=== PATIENT | female | born 1980 | race Caucasian/White ===

== ENCOUNTER 2021-09-22 14:25 | Emergency (ER) | payer SELFPAY ==
--- NOTE | 2021-09-22 15:49 | XR_ITS ---
PROCEDURE INFORMATION: Exam: XR Right Knee Exam date and time: 09/22/2021 3:49 PM Age: 41 years old Clinical indication: Injury or trauma; Sprain or strain; Patella or knee; Right; Injury date: 09/22/21; Injury details: Injury going down stairs; Prior surgery; Surgery date: 6+ months; Surgery type: Ligament repair; Patient HX: PT felt a pull C/O pain lt lower knee cap TECHNIQUE: Imaging protocol: XR Right knee. Views: 3 views. COMPARISON: No relevant prior studies available. FINDINGS: Bones/joints: Normal surgical appearance post anterior cruciate ligament reconstruction. No displacement of hardware.No acute fracture or dislocation. There is mild narrowing of the medial knee joint space suggesting underlying chondromalacia. No significant bony arthritic deformities. Very small knee joint effusion. There are no lytic skeletal lesions seen. Soft tissues: Periarticular swelling. Overlying clothing artifacts. No soft tissue emphysema.No radiopaque foreign bodies within the soft tissues. IMPRESSION: 1. No acute fracture or dislocation. 2. Surgical findings post anterior cruciate ligament reconstruction. 3. Very small knee joint effusion. 4. Mild medial knee joint space narrowing suggesting underlying chondromalacia.
[2021-09-22 15:56] VITALS: BP 120/78; PULSE 62; RESP 18; TEMP 36.6; O2SAT 98; BMI 28.7
--- NOTE | 2021-09-22 16:05 | PC.NURSE ---
notified rad of xray order
--- NOTE | 2021-09-22 16:15 | [facility].EDLOEX ---
ED Disposition Clinical Impression: Right knee sprain Qualifiers: Encounter type: initial encounter Involved ligament of knee: medial collateral ligament Qualified Code(s): S83.411A - Sprain of medial collateral ligament of right knee, initial encounter Disposition: Home, Self-Care Condition on Discharge: Good Instructions: DI for Knee Sprain Prescriptions: Hydrocod/Acet 5/325 mg [[place] 5/325mg tablet] 1 tab PO Q6HP PRN #10 tab PRN Reason: Moderate Pain Transmission Status: Sent to [facility] Referrals: Provider,MD Lulu [Primary Care Provider] - Roger Mcclain MD [Staff Physician] - Derick Fernández [Referring] - - Critical Care Critical Care Time: No Attestation: On 09/22/21, the high probability of a clinically significant, sudden or life threatening deterioration of the following system(s) required my full and direct attention, intervention and personal management. The time I documented below is in addition to time spent performing reported procedures but includes the following listed in this critical care notation. Medical Decision Making - Medical Records Medical records reviewed: Yes: I reviewed the patient's medical records. - Mark Inquiry Pt receiving controlled substance: No Vital Signs: 09/22/21 15:56 Temperature 97.9 F Temperature Source Oral Pulse Rate [Left Radial] 62 Respiratory Rate 18 Blood Pressure [Left Arm] 120/78 Blood Pressure Mean [Left Arm] 92 Blood Pressure Source [Left Arm] Automatic Cuff Blood Pressure Position [Left Arm] Sitting 02 Sat by Pulse Oximetry 98 Oxygen Delivery Method Room Air Orders (Tests/Meds): ED MEDICATIONS Discontinued Medications Generic Name Dose Route Start Last Admin Trade Name Freq PRN Reason Stop Dose Admin Hydrocodone Bitart/Acetaminophen 1 tab 09/22/21 15:49 09/22/21 16:08 Hydrocodone/Apap 5/325 Mg Tablet PO 09/22/21 15:50 1 tab ONCE ONE Administration ORDERS Category Date Time Status XR knee RT 3V Stat Exams 09/22/21 15:49 Taken - Radiology Data #1 Image(s): Knee Image Reviewed: Yes I reviewed the patient's radiology results, Yes I reviewed the patient's radiology image Patient has some mild effusion in the medial aspect. Evidence of previous ACL reconstruction. No obvious fracture deformity. - Reevaluation(s) Time: 16:53 Reevaluation #1: On reevaluation, the patient's pain is improved. There is no obvious fracture on x-ray imaging. I am concerned for possible MCL or medial meniscus injury. Patient will need to follow-up with orthopedic surgery. She has a stabilizing knee brace at bedside. Patient be discharged with short course analgesics. Given strict return precautions. Verbalized understanding. Medical Decision Narrative: 41-year-old female presenting with some right knee pain. Patient's symptoms are more consistent with a sprain. There is no evidence of compartment syndrome or displaced fracture. Work-up initiated. Lower Extremity Injury HPI - General Chief Complaint: Extremity Injury, Lower Stated Complaint: possible acl tear, right leg pain Time Seen by Provider: 09/22/21 16:00 Mode of Arrival: Wheelchair Limitations: No Limitations Description of Symptoms (Recalled from ER Triage Doc. by RN): Pt c/o R knee pain. Pt reports her knee gave out on her this morning, states she felt like it popped out of place. Pt reports unable to bear weight on RLE r/t pain, unable to straighten leg out r/t pain. Pt reports hx of ACL replacement/repiar. - History of Present Illness HPI Narrative: This is a 41-year-old female presented to the emergency department with some right knee pain. The patient states that she was walking up her steps earlier when she felt her knee go the wrong way. She felt like it slid the middle aspect. The patient has been having significant pain since then. Patient states that she has unable to bear weight secondary to the pain. She manzo
[2021-09-22 17:25] VITALS: BP 124/76; PULSE 61; RESP 16; TEMP 36.8; O2SAT 99
== END 2021-09-22 17:25 | disposition home or self-care (01) ==
LOC: UTC 14:31 → ER 15:19
PROVIDERS: Emergency Provider Emergency Medicine
DX: S83.411A Sprain of medial collateral ligament of right knee, initial encounter (principal); X50.0XXA Overexertion from strenuous movement or load, initial encounter; Y92.019 Unspecified place in single-family (private) house as the place of occurrence of the external cause
CPT/HCPCS: 73562; 99282